=== PATIENT | male | born 1975 | race Caucasian/White ===

== ENCOUNTER 2020-11-02 08:16 | Emergency (ER) | payer OTHER ==
[~2020-11-02] VITALS: Ht 177.8 cm; Wt 80.0 kg
[2020-11-02 08:20] VITALS: BP 139/94
--- NOTE | 2020-11-02 09:27 | NUR ---
PT LWBS. PT GIVEN RESOURCES TO OUTPATIENT CLINICS.
== END 2020-11-02 09:51 | disposition left against medical advice (07) ==
LOC: ED 09:25
DX: Z53.21 Procedure and treatment not carried out due to patient leaving prior to being seen by health care provider (principal)